=== PATIENT | female | born 1955 | race Two or more races ===

== ENCOUNTER 2017-08-03 12:26 | Outpatient (CLI) | payer OTHER ==
--- NOTE | 2017-08-03 16:19 | Diagnostic Imaging Report ---
Indication: Positive hepatitis a, chronic liver disease, right upper quadrant abdominal pain Technique: Barkley-scale and duplex images of the upper abdomen were obtained Comparison: None Findings: Gallbladder is unremarkable, without stones, wall thickening, nor pericholecystic fluid. Sonographic Alberto's sign is negative. Common bile duct measures 2 mm in diameter. No intrahepatic biliary ductal dilatation. Liver demonstrates diffusely increased echogenicity, consistent with diffuse hepatocellular disease, most likely fatty change. Echogenicity is somewhat heterogeneous No definite surface nodularity. Portal vein and hepatic veins are patent. Pancreas is unremarkable. Spleen is unremarkable. Left kidney measures 10.3 cm in length. Right kidney measures 10.5 cm length. Both kidneys demonstrate normal echogenicity. There is no hydronephrosis. No focal abnormality . Non-aneurysmal abdominal aorta . Impression: Increased and somewhat heterogeneous hepatic echogenicity consistent with hepatocellular disease, may represent fatty change or be related to stated clinical history of hepatitis or both Negative for gallstones or dilated ducts
== END 2017-08-03 14:26 | disposition home or self-care (01) ==
LOC: ULS 12:26
DX: K76.0 Fatty (change of) liver, not elsewhere classified (principal); B15.9 Hepatitis A without hepatic coma; K76.9 Liver disease, unspecified
CPT/HCPCS: 76700